=== PATIENT | female | born 2000 | race Caucasian/White ===

== ENCOUNTER 2022-12-28 16:22 | Outpatient (RCR) | payer OTHER, SELFPAY ==
[2022-12-26 18:02] LABS: Beta HCG Quantitative 128.17 mIU/ML
[2022-12-28 18:15] LABS: Beta HCG Quantitative 53.32 mIU/ML
[2022-12-29 05:29] LABS: Progesterone 1.9 ng/mL (***)
[2023-01-03 06:34] LABS: Progesterone 2.5 ng/mL (***)
== END 2023-03-26 23:59 | disposition home or self-care (01) ==
LOC: ANHLAB 16:22
PROVIDERS: PCP Pediatrics; Visit Provider Obstetrics & Gynecology
DX: O26.859 Spotting complicating pregnancy, unspecified trimester (principal); Z3A.00 Weeks of gestation of pregnancy not specified
CPT/HCPCS: 36415; 84144; 84702; 86850; 86900; 86901

== ENCOUNTER 2023-01-15 16:25 | Outpatient (CLI) | payer OTHER, SELFPAY ==
[2023-01-15 17:37] LABS: Beta HCG Quantitative < 2.39 mIU/ML
== END 2023-01-15 16:26 | disposition home or self-care (01) ==
LOC: ANHLAB 16:26
PROVIDERS: PCP Pediatrics; Visit Provider Obstetrics & Gynecology
DX: O03.9 Complete or unspecified spontaneous abortion without complication (principal); Z3A.00 Weeks of gestation of pregnancy not specified
CPT/HCPCS: 36415; 84702

== ENCOUNTER 2023-04-09 08:27 | Outpatient (CLI) | payer OTHER, SELFPAY ==
[2023-04-09 09:12] LABS: Beta HCG Quantitative 499.72 mIU/ML
[2023-04-11 06:15] LABS: Progesterone 24.1 ng/mL (***)
== END 2023-04-09 08:28 | disposition home or self-care (01) ==
LOC: ANHLAB 08:29
PROVIDERS: PCP Pediatrics; Visit Provider Obstetrics & Gynecology
DX: O09.299 Supervision of pregnancy with other poor reproductive or obstetric history, unspecified trimester (principal); Z3A.00 Weeks of gestation of pregnancy not specified
CPT/HCPCS: 36415; 84144; 84702

== ENCOUNTER 2023-04-11 07:41 | Outpatient (CLI) | payer OTHER, SELFPAY | END 2023-04-11 07:42 | disposition home or self-care (01) | LOC: ANHLAB 07:43 | PROVIDERS: PCP Hospitalist; Visit Provider Obstetrics & Gynecology | DX: O09.299 Supervision of pregnancy with other poor reproductive or obstetric history, unspecified trimester (principal); Z3A.00 Weeks of gestation of pregnancy not specified | CPT/HCPCS: 36415; 84702 ==

== ENCOUNTER → 2023-04-27 15:45 | Outpatient (CLI) | payer OTHER, SELFPAY ==
--- NOTE | ~2023-04-27 | US_ITS ---
EXAMINATION: US OB <=14 wk fetus w TV DATE: 04/27/2023 16:09 INDICATION: Jessica and inconclusive viability during first trimester. TECHNIQUE: Real-time pelvic ultrasound utilizing both a transvaginal and transabdominal probe was pe rformed. The interpreting radiologist was not present for the study. COMPARISON: None. FINDINGS: The uterus measures 9.8 x 4.9 x 5.9 cm. There is an intrauterine gestational sac. A yolk sac and fet al pole are identified. The crown rump length measures 9 mm, which correlates with an estimated gesta tional age of 6 weeks and 6 days. heart motion is identified measuring 131 beats per minute (bp m) by M-mode Doppler. The right ovary is not visualized. The left ovary measures 3.5 x 3.5 x 3.6 cm. There are couple anech oic cysts/follicles in the left ovary. Vascular flow identified in the left ovary on color Doppler. T here is no free fluid in the pelvis. IMPRESSION: 1. Single living fetus with heart rate of 131 bpm. 2. Gestational age by ultrasound of 6 weeks 6 day(s) +/- 4 day(s) with ultrasound estimated date of delivery (BETSY) of 12/15/2023. Reviewed, dictated and finalized at location A. [facility] IMPRESSION: 1. Single living fetus with heart rate of 131 bpm. 2. Gestational age by ultrasound of 6 weeks 6 day(s) +/- 4 day(s) with ultraso und estimated date of delivery (BETSY) of 12/15/2023.
== END ==
PROVIDERS: PCP Obstetrics & Gynecology; Visit Provider Obstetrics & Gynecology
DX: O36.80X0 Pregnancy with inconclusive fetal viability, not applicable or unspecified (principal); Z3A.01 Less than 8 weeks gestation of pregnancy
CPT/HCPCS: 76801; 76817

== ENCOUNTER 2023-05-09 17:37 | Outpatient (CLI) | payer OTHER, SELFPAY | END 2023-05-09 17:38 | disposition home or self-care (01) | LOC: ANHLAB 17:39 | PROVIDERS: PCP Hospitalist; Visit Provider Obstetrics & Gynecology | DX: B08.3 Erythema infectiosum [fifth disease] (principal) | CPT/HCPCS: 36415; 86747 ==

== ENCOUNTER 2023-05-24 09:19 | Outpatient (CLI) | payer OTHER, SELFPAY ==
--- NOTE | 2023-06-14 17:51 | WPDHOMESLEEP ---
Sleep Study - Home Unattended Date of Study: 05/24/23 Ordering Provider: DEB Suarez Interpreting Provider: Summer Ott, DO Home Sleep Study Type: Watch PAT Height: 1.65 m Weight: 79.379 kg Body Mass Index: 29.1 Neck Circumference (inches): 13 [place]: 0 Reason for Sleep Study Snoring Sleep History The patient is a 23-year-old female that had a sleep study ordered by the pulmonary group for evaluation of sleep apnea. The patient denies awakening from sleep short of breath. She denies awakening at night with heartburn, belching or cough. She frequently snores and it is frequently loud enough that others complain. She occasionally has trouble sleeping when she has a cold. She denies waking up gasping for air throughout the night. She denies having breathing problems at night observed by herself or others. She rarely sweats excessively at night. She denies having heart palpitations or irregular heartbeats during the night. She occasionally falls asleep during the day but never while driving. She denies sleep paralysis and cataplexy. She rarely has trouble at school or work due to sleepiness. She occasionally experiences vivid dreamlike scenes upon awakening or falling asleep. He denies feeling afraid of going to sleep. She occasionally has nightmares. She occasionally remembers her dreams. She rarely has thoughts racing through her mind. She denies feeling sad or depressed. She occasionally has anxiety. She denies having muscular tension. She denies noticing parts of her body jerk. She denies kicking during the night. She denies having crawling and aching feelings in her legs and denies leg pain during the night. She denies grinding her teeth during sleep and denies awakening with jaw pain in the morning. She denies being bothered by pain during the day and denies being awakened by pain during the night. She denies waking up feeling stiff. He denies waking up with sore or achy muscles. She denies waking up with pain in the neck, spine and other joints. She goes to bed at 9:00 p.m. on both weekdays and weekends. It takes her 10 minutes to fall asleep. She wakes up once at most throughout the night to use the restroom or due to a dream. It can take her up to 30 minutes to fall back asleep. She wakes up at 7:00 a.m. on weekdays and 8:00 a.m. on the weekends. She typically gets 10 hours of sleep per night. She will stay in bed anywhere from 20-60 minutes after waking up in the morning. She currently lives with her . She denies consuming any caffeinated beverages within 2 hours of bedtime. She denies engaging in physical exercise before bedtime. He will watch television before falling asleep. She will take naps during the afternoon or the evening but they are not refreshing. She consumes 1 caffeinated beverage at most throughout the day. She used to vape but stopped 4 years ago. She denies alcohol and recreational drug use. [facility] Past Medical History Medical History Anxiety Depression Surgical History Surgical History S/P cystoscopy [place] teeth removed Social History Social History Smoking status: Former smoker Tobacco type: e-cigarettes/vaping Alcohol intake: current Substance use: former Substance use type: marijuana Medications Home Medications Medication Instructions Recorded Confirmed Type progesterone micronized 100 mg 100 mg PO BID #60 caps 04/10/23 05/22/23 Rx capsule docosahexaenoic acid 200 mg mg PO 05/04/23 05/22/23 History capsule ( DHA) doxylamine succinate 25 mg tablet 25 mg PO QHS PRN 05/04/23 05/22/23 History (Unisom (doxylamine)) pyridoxine (vitamin B6) 10 mg 10 mg PO TID 05/22/23 05/22/23 History tablet ondansetron HCl 4 mg tablet 4 mg PO Q6H PRN n
[2023-06-14 18:02] VITALS: BMI 29.1
== END 2023-05-29 07:30 | disposition home or self-care (01) ==
LOC: ANHCSM 09:21
PROVIDERS: PCP Hospitalist; Visit Provider Physician Assistant
DX: G47.10 Hypersomnia, unspecified (principal); R06.83 Snoring
CPT/HCPCS: 95800

== ENCOUNTER 2023-06-06 16:38 | Outpatient (CLI) | payer OTHER, SELFPAY | END 2023-06-06 16:39 | disposition home or self-care (01) | LOC: ANHLAB 16:39 | PROVIDERS: PCP Hospitalist; Visit Provider Obstetrics & Gynecology | DX: B08.3 Erythema infectiosum [fifth disease] (principal) | CPT/HCPCS: 36415; 86747 ==

== ENCOUNTER 2023-06-13 16:52 | Outpatient (CLI) | payer OTHER, SELFPAY ==
[2023-06-13 17:33] LABS: Hematocrit 40.9 % (37.0-47.0); Hemoglobin 14.1 g/dL (12.0-15.0); Mean Corpuscular HGB Conc 34.5 g/dl (32-36); Mean Corpuscular Hemoglobin 32.2 pg (26-34); Mean Corpuscular Volume 93.4 fl (80-100); Mean Platelet Volume 12.3 fl (7.4-10.4); Platelet Count Result 217 k/mm3 (150-375); Red Blood Count 4.38 M/mm3 (4.2-5.4); Red Cell Distribution Width 12.8 % (11.5-14.5)
[2023-06-13 17:39] LABS: Appearance Urine Clear (Clear); Bacteria Urine 3+ /hpf; Bilirubin Urine Negative (Negative); Blood Urine Negative (Negative); Color Urine Yellow (Yellow); Glucose Urine UA Negative (Negative); Ketones Urine 1+ mg/dL (Negative); Leukocyte Esterase Ur 1+ LEU/UL (Negative); Nitrate Urine Negative (Negative); Non Pathogenic Casts 0-2; Protein Urine Negative (Negative); RBC Urine 0-2 /hpf (0-2); Specific Grav Ur 1.026 (1.001-1.035); Squamous Epithelial Cell Urine Few /hpf (Few); WBC Urine 21-50 /hpf (0-3); pH Urine 5.5 (5.0-9.0)
[2023-06-13 17:58] LABS: Add Urine Microscopic? YES
[2023-06-13 18:37] LABS: Hepatitis B Surface Antigen Negative (Negative); Rubella IgG Antibody 19.4 IU/ML; Thyroid Stimulating Hormone 0.808 uIU/mL (0.465-4.680)
[2023-06-13 18:47] LABS: HIV 1/2 Ab P24 Ag Result Negative (Negative)
[2023-06-13 18:51] LABS: Hepatitis C Virus Antibody Negative (Negative)
[2023-06-14 12:45] LABS: Rapid Plasma Reagin Non-Reactive (NonReactive)
[2023-06-17 15:10] LABS: Varicella IgG Antibody <135.00 Index (>=165.00)
[2023-06-19 15:53] LABS: Hematocrit 41.8 % (35.0-45.0); MCH 32.4 pg (27.0-33.0); MCV 96.8 fL (80.0-100.0); RDW 12.8 % (11.0-15.0); Red Blood Cell Count 4.32 Mill/uL (3.80-5.10)
== END 2023-06-13 16:53 | disposition home or self-care (01) ==
LOC: ANHLAB 16:53
PROVIDERS: PCP Hospitalist; Visit Provider Obstetrics & Gynecology
DX: Z34.90 Encounter for supervision of normal pregnancy, unspecified, unspecified trimester (principal); Z3A.00 Weeks of gestation of pregnancy not specified
CPT/HCPCS: 36415; 83021; 84443; 85027; 86592; 86703; 86762; 86787; 86803; 86850; 86900; 86901; 87086; 87088; 87340; G0432

== ENCOUNTER 2023-08-27 10:53 | Outpatient (CLI) | payer OTHER, SELFPAY ==
[2023-08-27 12:16] LABS: Hematocrit 34.7 % (37.0-47.0); Hemoglobin 11.8 g/dL (12.0-15.0); Mean Corpuscular Hemoglobin 32.8 pg (26-34); Mean Corpuscular Volume 96.4 fl (80-100); Mean Platelet Volume 12.5 fl (7.4-10.4); Platelet Count Result 182 k/mm3 (150-375); Red Cell Distribution Width 13.3 % (11.5-14.5); White Blood Count 13.9 K/mm3 (4.5-10.0)
[2023-08-27 12:28] LABS: Glucose 1 Hour PP 50gm Dose 140 mg/dL
== END 2023-08-27 10:54 | disposition home or self-care (01) ==
LOC: ANHLAB 10:54
PROVIDERS: PCP Hospitalist; Visit Provider Nurse Practitioner Family
DX: Z34.90 Encounter for supervision of normal pregnancy, unspecified, unspecified trimester (principal)
CPT/HCPCS: 36415; 82947; 85027

== ENCOUNTER 2023-08-31 07:01 | Outpatient (CLI) | payer OTHER, SELFPAY ==
[2023-08-31 07:49] LABS: Glucose Fasting Gestational 86 mg/dL (>/=95)
[2023-08-31 09:41] LABS: Glucose 1 Hour Gest 154 mg/dL (>/=180)
[2023-08-31 11:32] LABS: Glucose 2 Hour Gest 158 mg/dL (>/= 155)
[2023-08-31 11:35] LABS: Glucose 3 Hour Gest 112 mg/dL (>/=140)
== END 2023-08-31 07:02 | disposition home or self-care (01) ==
LOC: ANHLAB 07:02
PROVIDERS: PCP Hospitalist; Visit Provider Nurse Practitioner Family
DX: O99.810 Abnormal glucose complicating pregnancy (principal); Z3A.00 Weeks of gestation of pregnancy not specified
CPT/HCPCS: 36415; 82951; 82952

== ENCOUNTER 2023-10-23 17:21 | Outpatient (CLI) | payer OTHER, SELFPAY ==
[2023-10-23 17:40] LABS: Hematocrit 36.3 % (37.0-47.0); Hemoglobin 12.5 g/dL (12.0-15.0); Mean Corpuscular HGB Conc 34.4 g/dl (32-36); Mean Corpuscular Hemoglobin 33.2 pg (26-34); Mean Corpuscular Volume 96.3 fl (80-100); Mean Platelet Volume 13.2 fl (7.4-10.4); Platelet Count Result 170 k/mm3 (150-375); Red Blood Count 3.77 M/mm3 (4.2-5.4); Red Cell Distribution Width 13.1 % (11.5-14.5); White Blood Count 13.4 K/mm3 (4.5-10.0)
[2023-10-23 18:27] LABS: HIV 1/2 Ab P24 Ag Result Negative (Negative)
[2023-10-24 06:16] LABS: Rapid Plasma Reagin Non-Reactive (NonReactive)
== END 2023-10-23 17:22 | disposition home or self-care (01) ==
LOC: ANHLAB 17:22
PROVIDERS: PCP Hospitalist; Visit Provider Nurse Practitioner Family
DX: Z34.90 Encounter for supervision of normal pregnancy, unspecified, unspecified trimester (principal); Z3A.00 Weeks of gestation of pregnancy not specified
CPT/HCPCS: 36415; 85027; 85055; 86592; 86703; G0432

== ENCOUNTER 2023-11-28 07:01 | Inpatient (IN) | payer OTHER, SELFPAY ==
[2023-11-28] VITALS (80 sets, daily range): BP systolic 81–162; BP diastolic 44–98; PULSE 60–107; TEMP 36.1–36.4; O2SAT 97–100; BMI 30.9
--- NOTE | ~2023-11-28 | US_ITS ---
EXAMINATION: US OB BPP wo non-stress DATE: 11/28/2023 20:20 INDICATION: Abnormal biophysical profile. Third trimester. TECHNIQUE: Real-time pelvic ultrasound was performed. COMPARISON: Ultrasound 11/28/2023 FINDINGS: There is a single living fetus in breech presentation. The placenta is fundal and on the left. heart rate is 133 beats per minute (bpm). Biophysical profile performed by the technologist: breathing (30 sec sustained breathing in 30 minutes): 2 out of 2 movement (3 gross body movements in 30 minutes): 0 out of 2 tone (one episode of spenimw-ygkcsbyry-azmuuoc limb movement): 0 out of 2 Amniotic fluid pocket (2 cm): 2 out of 2 Total score: 4 out of 8 IMPRESSION: 1. Single living fetus in breech presentation. 2. Biophysical profile 4 out of 8. Reviewed, dictated and finalized at location A.
--- NOTE | ~2023-11-28 | US_ITS ---
EXAMINATION: US OB BPP wo non-stress DATE: 11/28/2023 13:29 INDICATION: Nonreactive tracing. Evaluate well-being. TECHNIQUE: Real-time pelvic ultrasound was performed. The interpreting radiologist was not present fo r the study. COMPARISON: None. FINDINGS: There is a single living fetus in breech presentation. The placenta is maternal left. cardiac activity and movement are demonstrated. heart rate is 126 beats per minute (bpm). Biophysical profile performed by the technologist: breathing (30 sec sustained breathing in 30 minutes): 2 out of 2 movement (3 gross body movements in 30 minutes): 0 out of 2 tone (one episode of bhskgrk-tzyfhsbkj-faltguq limb movement): 2 out of 2 Amniotic fluid pocket (2 cm): 2 out of 2 Total score: 6 out of 8 IMPRESSION: 1. Single living intrauterine in breech presentation with heart rate of 126 bpm. 2. Normal placenta. 3. Biophysical profile 6 out of 8. Reviewed, dictated and finalized at location B.
[2023-11-28 07:35] LABS: Basophils Absolute Auto 0.1 K/mm3 (0.0-0.1); Basophils Percent Auto 0.5 % (0.2-1.2); Eosinophils Absolute Auto 0.6 K/mm3 (0-0.3); Eosinophils Percent Auto 4.7 % (0-4.4); Hematocrit 38.9 % (37.0-47.0); Hemoglobin 13.1 g/dL (12.0-15.0); Immature Granulocyte Absolute 0.07 K/mm3 (0.00-0.031); Immature Granulocyte Percent A 0.5 % (0-0.5); Immature Platelet Fraction Pct 25.6 % (0.9-11.2); Lymphocytes Absolute Auto 3.01 K/mm3 (0.9-3.2); Lymphocytes Percent Auto 22.2 % (18.3-44.2); Mean Corpuscular HGB Conc 33.7 g/dl (32-36); Mean Corpuscular Hemoglobin 31.3 pg (26-34); Mean Corpuscular Volume 93.1 fl (80-100); Mean Platelet Volume 14.6 fl (7.4-10.4); Monocytes Absolute Auto 0.8 K/mm3 (0.1-0.6); Monocytes Percent Auto 6.1 % (2.6-8.5); Neutrophils Absolute Auto 8.9 K/mm3 (1.3-6.7); Platelet Count Result 170 k/mm3 (150-375); Red Blood Count 4.18 M/mm3 (4.2-5.4); Red Cell Distribution Width 13.1 % (11.5-14.5); White Blood Count 13.5 K/mm3 (4.5-10.0)
[2023-11-28] MEDS: LACTATED RINGERS 1,000 ML 999 ML IV CONT (07:39)
[2023-11-28] MEDS: LACTATED RINGERS 1,000 ML 125 ML IV CONT ×2 (08:40→10:40)
--- NOTE | 2023-11-28 09:46 | WPDANESEPP ---
Anes - Eval Pre Procedure Procedure: Epidural for Version Date/Time: 11/28/23 09:46 Surgeon: Carla Preop Diagnosis: 37 wk IUP, breech presentation, scheduled external version Pre Op Diagnosis: external version Patient Data Age: 23 Gender: F Height: Weight: Last Vital Signs Pulse 79 11/28/23 09:45 BP 119/60 11/28/23 09:45 Pulse Ox 99 11/28/23 09:43 Allergies Allergy/AdvReac Type Severity Reaction Status Date / Time ciprofloxacin Allergy Unknown THROAT Verified 11/27/23 08:43 SWELLING dexamethasone Allergy Unknown THROAT Verified 11/27/23 08:43 SWELLING Home Medications Medication Instructions Recorded Confirmed Type docosahexaenoic acid 200 mg 200 mg PO DAILY 05/04/23 11/22/23 History capsule ( DHA) Laboratory Tests 11/28/23 07:27 WBC 13.5 H K/mm3 (4.5-10.0) RBC 4.18 L M/mm3 (4.2-5.4) Hgb 13.1 g/dL (12.0-15.0) Hct 38.9 % (37.0-47.0) MCV 93.1 fl (80-100) MCH 31.3 pg (26-34) MCHC 33.7 g/dl (32-36) RDW 13.1 % (11.5-14.5) Plt Count 170 k/mm3 (150-375) MPV 14.6 H fl (7.4-10.4) Immature Gran % (Auto) 0.5 % (0-0.5) Neut % (Auto) 66.0 % (45.5-73.1) Lymph % (Auto) 22.2 % (18.3-44.2) [place] % (Auto) 6.1 % (2.6-8.5) Eos % (Auto) 4.7 H % (0-4.4) Baso % (Auto) 0.5 % (0.2-1.2) Lymph # (Auto) 3.01 K/mm3 (0.9-3.2) [place] # (Auto) 0.8 H K/mm3 (0.1-0.6) Eos # (Auto) 0.6 H K/mm3 (0-0.3) Baso # (Auto) 0.1 K/mm3 (0.0-0.1) Abs Immat Gran (auto) 0.07 H K/mm3 (0.00-0.031) Absolute Neuts (auto) 8.9 H K/mm3 (1.3-6.7) Absolute Nucleated RBC 0.000 K/mm3 (0.0-0.012) Nucleated RBC % 0.0 % (0.0-0.2) % Immature Plt Fraction 25.6 H % (0.9-11.2) : gestational age (, BETSY 12/15/23) Patient hx anesthesia problems: none Family hx anesthesia problems: none Results Review: All pre-operative results and documents have been reviewed as part of the pre-operative evaluation. [facility] Past Medical History Medical History Anxiety Depression Surgical History Surgical History S/P cystoscopy [place] teeth removed Family History Family History Other Unknown family medical history Social History Social History Smoking status: Former smoker Tobacco type: e-cigarettes/vaping Alcohol intake: current Substance use: never Substance use type: marijuana Spiritual care concerns: No Exam Day of Procedure 11/28/23 09:46 Patient weight: normal Heart: regular rate and rhythm Lungs: normal air movement Airway: Mallampati scale class II Neurological: alert and oriented
[2023-11-28] MEDS: TERBUTALINE SULFATE 1 MG/ML VIAL 0.25 MG SUB-Q (09:51)
[2023-11-28] MEDS: PHENYLEPHRINE 1,000 MCG/10 ML SYRINGE 100 MCG IV PUSH ×2 (10:08→10:35)
[2023-11-28 11:11] LABS: Alanine Aminotransferase 46 U/L (6-35); Albumin Level 3.5 g/dL (3.5-5.1); Alkaline Phosphatase 265 U/L (38-126); Anion Gap 11 mmol/L (4-12); Aspartate Amino Transferase 49 U/L (14-36); Bilirubin,Total 0.4 mg/dL (0.2-1.3); Blood Urea Nitrogen 12 mg/dL (7-17); Carbon Dioxide 21 mmol/L (22-30); Chloride 103 mmol/L (98-107); Estimated Glomerular Filt Rate > 60; Glucose 57 mg/dL (65-110); Potassium 3.8 mmol/L (3.4-5.0); Sodium 135 mmol/L (137-145); Uric Acid 5.6 mg/dL (2.5-7.5)
--- NOTE | 2023-11-28 11:16 | PC.NURSE ---
Dr Aguirre informed of elevated AST and ALT, orders for P/C ratio when patient able to void and start urine. Informed of low glucose, and that patient had a juice.
[2023-11-28 13:36] LABS: Add Urine Microscopic? YES; Appearance Urine Clear (Clear); Bacteria Urine None Seen /hpf; Bilirubin Urine Negative (Negative); Blood Urine Negative (Negative); Color Urine Yellow (Yellow); Glucose Urine UA Negative (Negative); Ketones Urine Negative (Negative); Leukocyte Esterase Ur Trace LEU/UL (Negative); Nitrate Urine Negative (Negative); Non Pathogenic Casts 0-2; Protein Urine Negative (Negative); RBC Urine 0-2 /hpf (0-2); Specific Grav Ur 1.009 (1.001-1.035); Squamous Epithelial Cell Urine None Seen /hpf (Few); Urobilinogen Urine 0.2 mg/dL (<2.0); WBC Urine 0-5 /hpf (0-3)
--- NOTE | 2023-11-28 13:36 | PC.NURSE ---
Dr Aguirre informed of BPP 08/31 and minimal variability and preliminary US report. OK for patient to Eat and cont to monitor baby.
[2023-11-28 14:57] LABS: Creatinine Urine 50.7 mg/dL; Total Protein Urine Random 11 mg/dL; Ur Ttl Prot Creatinine Ratio 0.22 mg/mg (0-0.20)
--- NOTE | 2023-11-28 17:48 | PC.NURSE ---
Dr Aguirre called, no answer, message left to call jammie.
--- NOTE | 2023-11-28 17:57 | LDADM ---
This patient, Ashley Zimmerman, was admitted to OB Post 116 on at 07:01. Plans for labor, pain management and were discussed with patient. Patient/family oriented to hospital policies and general routines including ID bracelet, bed and alarms, visiting hours, pain management, procedures, bathroom and other care routines, personal items, smoking policy, room service/diet and guest tray routines, infant security routines, and visiting hours. Patient/Family are encouraged to report perceived risks to care and to ask questions if they do not understand what they are told or what they should do. See OBIX for further documentation.
--- NOTE | 2023-11-28 18:06 | PC.NURSE ---
Dr Aguirre called again, no answer, message left.
[2023-11-28 18:55] LABS: Rapid Plasma Reagin Non-Reactive (NonReactive)
--- NOTE | 2023-11-28 21:05 | W.PM.PROC2 ---
Procedure Note - Detailed Date of Procedure 11/28/23 Pre-op Diagnosis Persistent breech presentation Post-op Diagnosis Same Procedure Performed External cephalic version - unsuccessful Surgeon Quintin Aguirre MD Anesthesia Epidural Indications Persistent breech presentation Findings Fetus confirmed breech presentation prior to version Description of Procedure After informed consent obtained. ?A bedside ultrasound was performed which confirmed the single intrauterine and in breech presentation. There was noted to be adequate fluid and a reactive NST. Epidural was placed. She was given .25mg terbutaline. The pelvis was located in the maternal RLQ, spine along the materal right side, and head in the maternal LUQ. Using manual pressure, the fetus was manipulated with gentle pressure from the palms against the buttock and posterior occupit to stimulate a forward roll. This was done twice. heart was visualized with ultrasound after each attempt. The head would get to transverse and return back to LUQ. After second attempt their was noted to be brief, less than minute of bradycardia, this did resolve with left tilt. A third attempt was made with backwards roll and head reached transverse position but returned to fundus. heart rate 120-130s. Decision was made to not perform any further attempts. Post procedure monitoring was initiated. Estimated Blood Loss 0 Drains No Packing No Complications No immediate complications Condition Stable Disposition Observation (on floor) [facility] Billing Surgery - Charge Forward: Surgery Billing
--- NOTE | 2023-11-28 21:20 | PM.IMHP ---
H&P: HPI History of Present Illness Date/Time: 11/28/23 21:20 Chief Complaint: Gestational hypertension Narrative: Patient is a 23 y/o G1 at 37 4 weeks admitted initially for external cephalic version. Prior to version she did have isolated elevated blood pressure. She denied headache, scotomata or RUQ pain. PIH labs performed which was significant for elevated liver enzymes. She had prolonged monitoring after ECV. Tracing was nonreactive. BPP performed and was 6/10. She did not eat prior to the BPP. She continued to have intermittent elevated blood pressures throughout the day. She was informed of diagnosis of gestational hypertension and recommendation for delivery. The tracing did improve. Reactive. Repeat BPP 6/10. She will stay for monitoring with plan for primary section for breech in the morning. She was informed of risk benefits of section and agreed with section. Review of Systems Review of Systems: All systems reviewed & are unremarkable except as noted in HPI and below Constitutional: Constitutional: Reports no additional constitutional complaints and Denies headache(s) Eyes: Eyes: Denies spots in vision ENT: Reports system reviewed and no additional complaints, except as documented and Denies headache(s) Cardiovascular: Cardiovascular: Denies chest pain and Denies dyspnea Respiratory: Respiratory: Denies dyspnea Gastrointestinal: Gastrointestinal: Reports no additional gastrointestinal complaints Genitourinary: Genitourinary: Reports amenorrhea Musculoskeletal: Musculoskeletal: Reports no additional musculoskeletal complaints Integumentary/Breasts: Skin/Breast: Denies breast mass and Denies rash Neurologic: Denies headache(s) Psychiatric: Psychiatric: Reports no additional psychiatric complaints [facility] Past Medical History Medical History Anxiety Depression Surgical History Surgical History S/P cystoscopy [place] teeth removed Family History Family History Other Unknown family medical history Social History Social History Smoking status: Never smoker Tobacco type: e-cigarettes/vaping Alcohol intake: current Substance use: never Substance use type: marijuana Do You Feel Safe in your Home?: Yes Lack of Transportation: No Lack of Food: Never True Current Housing: I Have Housing Concerned About Future Housing: No Difficulty Paying Gas/Electric Bills: No Difficulty Paying for Meds: No Currently Unemployed: No Education: Bachelor's Degree Difficulty w/ Childcare or Family Care: No Spiritual care concerns: No Meds Home Medications and Allergies Home Medications Medication Instructions Recorded Confirmed Type docosahexaenoic acid 200 mg 200 mg PO DAILY 05/04/23 11/22/23 History capsule ( DHA) Allergies Allergy/AdvReac Type Severity Reaction Status Date / Time ciprofloxacin Allergy Unknown THROAT Verified 11/27/23 08:43 SWELLING dexamethasone Allergy Unknown THROAT Verified 11/27/23 08:43 SWELLING Vital Signs Vital Signs - 24 hr 11/28/23 08:12 11/28/23 08:15 11/28/23 08:30 Pulse Rate 87 83 87 Blood Pressure 136/79 130/87 132/94 H Pulse Oximetry Oxygen Delivery 11/28/23 08:36 11/28/23 08:45 11/28/23 09:15 Pulse Rate 90 84 81 Blood Pressure 129/91 H 134/93 H 122/92 H Pulse Oximetry Oxygen Delivery 11/28/23 09:22 11/28/23 09:23 11/28/23 09:25 Pulse Rate 107 H 95 90 Blood Pressure 157/92 H 162/98 H 136/82 Pulse Oximetry 99 Oxygen Delivery 11/28/23 09:27 11/28/23 09:28 11/28/23 09:30 Pulse Rate 101 H 95 Blood Pressure 137/97 H 137/63 Pulse Oximetry 97 Oxygen Delivery 11/28/23 09:32 11/28/23 09:33 11/28/23 09:35 Pulse
[2023-11-29] VITALS (60 sets, daily range): BP systolic 102–154; BP diastolic 49–98; PULSE 49–97; RESP 16–20; TEMP 36.3–37.1; O2SAT 96–100
[2023-11-29 04:53] LABS: Hematocrit 33.7 % (37.0-47.0); Hemoglobin 11.4 g/dL (12.0-15.0); Immature Platelet Fraction Pct 23.6 % (0.9-11.2); Mean Corpuscular HGB Conc 33.8 g/dl (32-36); Mean Corpuscular Volume 94.7 fl (80-100); Mean Platelet Volume 14.6 fl (7.4-10.4); Platelet Count Result 129 k/mm3 (150-375); Red Blood Count 3.56 M/mm3 (4.2-5.4); Red Cell Distribution Width 13.1 % (11.5-14.5); White Blood Count 10.7 K/mm3 (4.5-10.0)
[2023-11-29 05:05] LABS: Alanine Aminotransferase 43 U/L (6-35); Albumin Level 2.8 g/dL (3.5-5.1); Alkaline Phosphatase 224 U/L (38-126); Anion Gap 8 mmol/L (4-12); Aspartate Amino Transferase 41 U/L (14-36); Bilirubin,Total 0.3 mg/dL (0.2-1.3); Blood Urea Nitrogen 10 mg/dL (7-17); Calcium 8.5 mg/dL (8.4-10.2); Carbon Dioxide 22 mmol/L (22-30); Chloride 105 mmol/L (98-107); Estimated CRCL calculation 115 ml/min; Estimated Glomerular Filt Rate > 60; Glucose 102 mg/dL (65-110); Potassium 3.8 mmol/L (3.4-5.0); Sodium 135 mmol/L (137-145); Uric Acid 5.4 mg/dL (2.5-7.5)
[2023-11-29] MEDS: LACTATED RINGERS 1,000 ML 125 ML IV CONT (05:37)
[2023-11-29] MEDS: ACETAMINOPHEN 500 MG TABLET 1000 MG PO (05:38)
[2023-11-29 05:44] LABS: HIV 1/2 Ab P24 Ag Result Negative (Negative)
[2023-11-29] MEDS: FAMOTIDINE 20 MG/2 ML VIAL IV PUSH (07:27)
[2023-11-29] MEDS: ONDANSETRON INJ 4 MG/2 ML VIAL IV PUSH (07:27)
--- NOTE | 2023-11-29 07:27 | P.PNAN_ITS ---
Anes - Initial Pre Proc Eval Procedure: Operation Date: 11/29/23 07:30 Proposed Procedures p Section - Quintin Aguirre MD Date/Time: 11/29/23 07:27 Surgeon: Quintin Aguirre MD Pre Op Diagnosis: C/S Patient Data Age: 23 Gender: F Height: 1.65 m Weight: 84.5 kg Last Vital Signs Temp 97.8 F 11/29/23 05:38 Pulse 77 11/29/23 07:00 BP 150/97 H 11/29/23 07:00 Pulse Ox 100 11/28/23 12:13 O2 Del Method Room Air 11/28/23 17:56 Allergies Allergy/AdvReac Type Severity Reaction Status Date / Time ciprofloxacin Allergy Unknown THROAT Verified 11/27/23 08:43 SWELLING dexamethasone Allergy Unknown THROAT Verified 11/27/23 08:43 SWELLING Home Medications Medication Instructions Recorded Confirmed Type docosahexaenoic acid 200 mg 200 mg PO DAILY 05/04/23 11/22/23 History capsule ( DHA) Laboratory Tests 11/28/23 11/28/23 11/28/23 07:27 10:49 13:22 WBC 13.5 H K/mm3 (4.5-10.0) RBC 4.18 L M/mm3 (4.2-5.4) Hgb 13.1 g/dL (12.0-15.0) Hct 38.9 % (37.0-47.0) MCV 93.1 fl (80-100) MCH 31.3 pg (26-34) MCHC 33.7 g/dl (32-36) RDW 13.1 % (11.5-14.5) Plt Count 170 k/mm3 (150-375) MPV 14.6 H fl (7.4-10.4) Immature Gran % (Auto) 0.5 % (0-0.5) Neut % (Auto) 66.0 % (45.5-73.1) Lymph % (Auto) 22.2 % (18.3-44.2) [place] % (Auto) 6.1 % (2.6-8.5) Eos % (Auto) 4.7 H % (0-4.4) Baso % (Auto) 0.5 % (0.2-1.2) Lymph # (Auto) 3.01 K/mm3 (0.9-3.2) [place] # (Auto) 0.8 H K/mm3 (0.1-0.6) Eos # (Auto) 0.6 H K/mm3 (0-0.3) Baso # (Auto) 0.1 K/mm3 (0.0-0.1) Abs Immat Gran (auto) 0.07 H K/mm3 (0.00-0.031) Absolute Neuts (auto) 8.9 H K/mm3 (1.3-6.7) Absolute Nucleated RBC 0.000 K/mm3 (0.0-0.012) Nucleated RBC % 0.0 % (0.0-0.2) % Immature Plt Fraction 25.6 H % (0.9-11.2) Sodium 135 L mmol/L (137-145) Potassium 3.8 mmol/L (3.4-5.0) Chloride 103 mmol/L (98-107) Carbon Dioxide 21 L mmol/L (22-30) Anion Gap 11 mmol/L (4-12) BUN 12 mg/dL (7-17) Creatinine 0.70 mg/dL (0.7-1.0) Estim Creat Clear Calc Not Reportable Estimated GFR > 60 (59 - ) Glucose 57 L* mg/dL (65-110) Uric Acid 5.6 mg/dL (2.5-7.5) Calcium 10.0 mg/dL (8.4-10.2) Total Bilirubin 0.4 mg/dL (0.2-1.3) AST 49 H U/L (14-36) ALT 46 H
--- NOTE | 2023-11-29 07:29 | WPDANESEPPF ---
Anes - Initial Pre Proc Eval Procedure: Operation Date: 11/29/23 07:30 Proposed Procedures p Section - Quintin Aguirre MD Date/Time: 11/29/23 07:29 Surgeon: Quintin Aguirre MD Pre Op Diagnosis: C/S Patient Data Age: 23 Gender: F Height: 1.65 m Weight: 84.5 kg Last Vital Signs Temp 97.8 F 11/29/23 05:38 Pulse 77 11/29/23 07:00 BP 150/97 H 11/29/23 07:00 Pulse Ox 100 11/28/23 12:13 O2 Del Method Room Air 11/28/23 17:56 Allergies Allergy/AdvReac Type Severity Reaction Status Date / Time ciprofloxacin Allergy Unknown THROAT Verified 11/27/23 08:43 SWELLING dexamethasone Allergy Unknown THROAT Verified 11/27/23 08:43 SWELLING Home Medications Medication Instructions Recorded Confirmed Type docosahexaenoic acid 200 mg 200 mg PO DAILY 05/04/23 11/22/23 History capsule ( DHA) Laboratory Tests 11/28/23 11/28/23 11/28/23 07:27 10:49 13:22 WBC 13.5 H K/mm3 (4.5-10.0) RBC 4.18 L M/mm3 (4.2-5.4) Hgb 13.1 g/dL (12.0-15.0) Hct 38.9 % (37.0-47.0) MCV 93.1 fl (80-100) MCH 31.3 pg (26-34) MCHC 33.7 g/dl (32-36) RDW 13.1 % (11.5-14.5) Plt Count 170 k/mm3 (150-375) MPV 14.6 H fl (7.4-10.4) Immature Gran % (Auto) 0.5 % (0-0.5) Neut % (Auto) 66.0 % (45.5-73.1) Lymph % (Auto) 22.2 % (18.3-44.2) [place] % (Auto) 6.1 % (2.6-8.5) Eos % (Auto) 4.7 H % (0-4.4) Baso % (Auto) 0.5 % (0.2-1.2) Lymph # (Auto) 3.01 K/mm3 (0.9-3.2) [place] # (Auto) 0.8 H K/mm3 (0.1-0.6) Eos # (Auto) 0.6 H K/mm3 (0-0.3) Baso # (Auto) 0.1 K/mm3 (0.0-0.1) Abs Immat Gran (auto) 0.07 H K/mm3 (0.00-0.031) Absolute Neuts (auto) 8.9 H K/mm3 (1.3-6.7) Absolute Nucleated RBC 0.000 K/mm3 (0.0-0.012) Nucleated RBC % 0.0 % (0.0-0.2) % Immature Plt Fraction 25.6 H % (0.9-11.2) Sodium 135 L mmol/L (137-145) Potassium 3.8 mmol/L (3.4-5.0) Chloride 103 mmol/L (98-107) Carbon Dioxide 21 L mmol/L (22-30) Anion Gap 11 mmol/L (4-12) BUN 12 mg/dL (7-17) Creatinine 0.70 mg/dL (0.7-1.0) Estim Creat Clear Calc Not Reportable Estimated GFR > 60 (59 - ) Glucose 57 L* mg/dL (65-110) Uric Acid 5.6 mg/dL (2.5-7.5) Calcium 10.0 mg/dL (8.4-10.2) Total Bilirubin 0.4 mg/dL (0.2-1.3) AST 49 H U/L (14-36) ALT 46 H U/L (6-35) Alkaline Phosphatase 265 H U/L (38-126) Total Protein 7.0 g/dL (6.3-8.2) Albumin 3.5 g/dL (3.5-5.1) Urine Color Yellow (Yellow) Urine Appearance Clear (Clear) Urine pH 8.0 (5.0-9.0) Ur Specific [place] 1.009 (1.001-1.035) Urine Protein Negative mg/dL (Negative) Urine Glucose (UA) Negative mg/dL (Negative) Urine Ketones Negative mg/dL (Negative) Ur Blood (Man) Negative (Negative) Urine Nitrate Negative (Negative) Urine Bilirubin Negative (Negative) Urine Urobilinogen 0.2 mg/dL (<2.0) Leukocyte Esterase Rfl Trace H VERNON/UL (Negative) Urine RBC 0-2 /hpf (0-2) Urine WBC 0-5 /hpf (0-3) Ur Squamous Epith Cells None seen /hpf (Few) Urine Bacteria None seen /hpf Urine Casts 0-2 U Random Total Protein 11 mg/dL Urine Creatinine 50.7 mg/dL Protein/Creat Ratio 2 0.22 H mg/mg (0-0.20) RPR HIV 1&2 Ab/P24 Ag 4thGn Blood Type Antibody Screen 11/28/23 11/29/23 18:28 04:43 WBC 10.7 H K/mm3 (4.5-10.0) RBC 3.56
--- NOTE | 2023-11-29 07:37 | P.PNAN_ITS ---
Anes - Eval Final PreProcedure Day of Procedure 11/29/23 07:37 Patient weight: overweight Heart: regular rate and rhythm Lungs: clear to auscultation Airway: Mallampati scale class II Neurological: alert and oriented Last oral intake: >/= 8 hours ASA classification: III Emergent: no Anesthetic plan: proceed Anesthesia type and monitoring: regional spinal and standard monitoring Results Review: All pre-operative results and documents have been reviewed as part of the pre- operative evaluation. Informed Consent: The patient's anesthetic plan and its attendant risks and benefits were discussed with the patient/family/POA. Questions were solicited and answers provided to the satisfaction of the patient/family/POA.
[2023-11-29] MEDS: ceFAZolin 2 GM/D5W 50 ML 2 GM/50 ML BAG IVPB (07:42)
[2023-11-29] MEDS: OXYTOCIN 30 UNITS/NS 500 ML 30 UNITS/500 ML BAG 125 UNITS IV CONT (09:10)
--- NOTE | 2023-11-29 09:23 | W.PM.OBCSD ---
OB - Delivery Note Procedure Delivery date: 11/29/23 Pre-op diagnosis: Breech Presentation and Gestational Hypertension Post-op Diagnosis: Same Induction method: None Delivery monitor: External FHT Prior to decision for section, [facility] labor guidelines were considered and discussed with the patient and staff. Decision made to proceed with the section.: Yes Procedure Performed: Primary Surgeon: Quintin Aguirre MD Anesthesia type: Epidural Description of Procedure/Findings: Findings female David breech presentation loose nuchal cord. ultrasound performed and or and confirmed persistent breech. After informed consent, risks and benefits of the procedure was discussed with the patient. The patient was taken to the operating room where she was placed in the dorsal lithotomy position with leftward tilt. After the prior placed epidural anesthesia was found to be adequate, she was then prepped and draped in the usual sterile fashion. A Pfannenstiel skin incision was made with a scalpel and carried through to the underlying layer of fascia. The fascia was then nicked in the midline, extending bilaterally. The fascia was dissected off the rectus muscles bluntly and sharply, superiorly and inferiorly. The rectus muscles were in the midline, and peritoneum was identified and entered bluntly. The pelvic organs were visualized. The bladder blade was then inserted. The bladder was displaced below the area of the lower uterine segment incision. The low transverse uterine incision was then made with the scalpel. The buttocks were visualized with fundal pressure the buttocks was delivered and then the legs were flexed and delivered. The torso was delivered, the arms were flexed and delivered and the head was delivered in a flexed position loose nuchal cord was manually reduced. The nose and mouth suctioned. The cord was clamped twice and cut. The was then handed off to the awaiting pediatric staff. The placenta was then delivered manually. The uterine cavity was sponge curretted. The uterus was then exteriorized. The uterine incision was then closed with 0 vicryl in a running locked fashion. A figure of eight of 0 vicryl at the left of incision was used for hemostasis. Hemostasis noted. A second layer of 0 vicryl was used in an imbricating fashion for hemostasis. posterior cul-de-sac was cleared of debris. The uterus was then returned to the abdomen. Bilateral gutters were cleared off all clots and debris. The uterine incision was noted to be hemostatic. Interceed placed on uterine incision. The muscle bellies were inspected and noted to be hemostatic. The subfascial layer was noted to be hemostatic, and the fascia was closed with 0 Vicryl in a running fashion. The skin was closed with 4.0 Vicryl subcutaneously on a Keif needle Skin dermabond applied at incision. All instruments, needle, and lap counts were correct x3. The patient was taken to the recovery room in stable condition. Estimated Blood Loss: 330 Drains: No Packing: No Pathology: Yes ( placenta and cord) Complications: No immediate complications Condition: Stable Disposition: Floor [place] Baby Date of : 11/29/23 Time of : 08:07 Gestational Age by Date: 37 gender: Female Weight (pounds): 6 Weight (ounces): 11 presentation: david breech position: Other ( david breech) Placenta delivery description: Manual Removal Cord Vessel Description: 3 Vessels, Nuchal Cord and Loose
--- NOTE | 2023-11-29 11:00 | OBPPTRN ---
Patient transferred to post room #282 via stretcher. Support person present. Oriented to unit, room, information board, rooming in, admission packet and security measures. Patient verbalizes understanding.
[2023-11-29] MEDS: KETOROLAC 15 MG/ML VIAL (*BKC) IV PUSH ×2 (11:27→17:47)
[2023-11-29] MEDS: ACETAMINOPHEN 325 MG TABLET 650 MG PO ×2 (11:28→17:46)
[2023-11-29] MEDS: SIMETHICONE 80 MG TAB.CHEW PO ×2 (11:28→17:47)
--- NOTE | 2023-11-29 12:45 | PC.NURSE ---
Introductions were made, then consulted with patient to assess needs related to . Mother led the conversation with her?plans to feed?her infant and the?experience so far. Encouraged understanding of the benefits of skin to skin, stimulating with massage touch, changing positions to encourage wakefulness, how to watch for early feeding cues, responsive feeding, feeding on demand (aiming for 8-12 times in 24 hours, about every 2-3 hours), milk production, building/maintaining a milk supply, duration of feeding, signs of adequate intake/output and how to record on the feeding sheet. Mother states that she is very nervous and has a lot of questions. Reviewed positioning and ear, shoulder, hip alignment, supporting the breast to facilitate a deep latch, asymmetrical latch (off-center), leading with the chin with a big, open, wide gape and body close to mother. Infant latched to the right breast in cross cradle position and sucked 4-5 times and fell asleep at the breast. Infants diaper was changed and infant was awake briefly then back to sleep on mom. Mother will do skin to skin and attempt to feed again in 30 minutes. Mother will call for help when she is ready to nurse . Mother voiced understanding of skin to skin, stimulating with massage touch, responsive feedings, hand expressed colostrum, talking to to encourage if it has been 2 -2.5 hours since the start of the last , to call if does not latch, or if there is discomfort with . Communication board updated with RN phone number and name. Reported to the Primary RN.
--- NOTE | 2023-11-29 14:30 | PC.NURSE ---
Called to room for help with latch. is sleepy upon entering room. Parents are able to arouse infant and infant made several attempt to latch to the left breast. Mother needs assistance with positioning for feedings. unable to maintain latch on left side and will take a few sucks and come off the breast. After multiple attempts, we switched to the right side in cross cradle position. latched optimally to the left breast in cross cradle position and is maintaining latch. Observed 5 minutes of the feeding and discussed with mother to call for assistance if she needs help switching to the left side. Educated mother about not limiting feedings in the early days and to begin on the opposite side with the next feeding if infant only nurses on the right breast this feeding. Primary RN updated.
[2023-11-29] MEDS: KCL 20 MEQ/D5/0.45% SOD CHL 1,000 ML 125 ML IV CONT (16:02)
[2023-11-29] MEDS: DOCUSATE SODIUM 100 MG CAPSULE PO (17:47)
[2023-11-29] MEDS: LIDOCAINE 5% PATCH 1 PATCH TRANSDERM (17:51)
[2023-11-30] VITALS (7 sets, daily range): BP systolic 114–129; BP diastolic 66–88; PULSE 72–99; RESP 16–20; TEMP 36.2–36.8; O2SAT 97–100
[2023-11-30] MEDS: KETOROLAC 15 MG/ML VIAL (*BKC) IV PUSH (00:04)
[2023-11-30] MEDS: ACETAMINOPHEN 325 MG TABLET 650 MG PO ×5 (00:04→23:45)
[2023-11-30 04:39] LABS: Basophils Absolute Auto 0.1 K/mm3 (0.0-0.1); Basophils Percent Auto 0.4 % (0.2-1.2); Eosinophils Absolute Auto 0.3 K/mm3 (0-0.3); Eosinophils Percent Auto 1.9 % (0-4.4); Hematocrit 34.7 % (37.0-47.0); Hemoglobin 11.6 g/dL (12.0-15.0); Immature Granulocyte Absolute 0.08 K/mm3 (0.00-0.031); Immature Granulocyte Percent A 0.6 % (0-0.5); Immature Platelet Fraction Pct 22.9 % (0.9-11.2); Lymphocytes Absolute Auto 1.88 K/mm3 (0.9-3.2); Lymphocytes Percent Auto 14.4 % (18.3-44.2); Mean Corpuscular HGB Conc 33.4 g/dl (32-36); Mean Corpuscular Hemoglobin 31.6 pg (26-34); Mean Corpuscular Volume 94.6 fl (80-100); Mean Platelet Volume 14.5 fl (7.4-10.4); Monocytes Absolute Auto 0.8 K/mm3 (0.1-0.6); Monocytes Percent Auto 5.8 % (2.6-8.5); Neutrophils Percent Auto 76.9 % (45.5-73.1); Platelet Count Result 124 k/mm3 (150-375); Red Blood Count 3.67 M/mm3 (4.2-5.4); Red Cell Distribution Width 13.1 % (11.5-14.5)
[2023-11-30] MEDS: IBUPROFEN 600 MG TABLET PO ×4 (05:45→23:45)
--- NOTE | 2023-11-30 08:30 | PC.NURSE ---
This RN checked in on mother and , while doing so, mother states that she had questions about the [id number] feeding plan that was established overnight. This RN reviewed what a [id number] feeding plan entails and informed mother that this is not a physician order and it is not medically necessary at this time. Reiterated that if she would like to supplement after , this would also be fine. Mother states that she would like to exclusively breastfeed until [id number] Dixon aware of this plan of care and agrees that supplementation is not needed at this time and mother can remain exclusively . A weight on infant will be checked again at 1600 today, primary RN updated about weight check ordered by Dr. Dixon.
--- NOTE | 2023-11-30 08:50 | PC.NURSE ---
Called to bedside for help with latching . Mother needs education on positioning in a position where she feels comfortable. placed cross cradle and latched optimally to the right breast. Multiple swallows were witnessed and mother denies pain. Discussed that sitting in a chair for next feeding may be more comfortable for her and experimenting with different positions to find what works will make her feel more comfortable. Mother agrees and will call this RN for next feeding if needed.
[2023-11-30] MEDS: HYDROcodone/acetaminophen (*CRX) 5-325 MG TABLET 1 TAB PO ×2 (10:10→21:10)
--- NOTE | 2023-11-30 10:10 | PM.OBPNVD ---
OB - PN: Subj Subjective Date/time seen: 11/30/23 10:10 <Paty Brewer APRN - Last Filed: 11/30/23 11:23> Interval history: she had ambulated to rest from. She complained of a rash that she had before her that was itchy. <Quintin Aguirre MD - Last Filed: 11/30/23 11:35> Patient comments: tolerating diet; no flatus present <Paty Brewer APRN - Last Filed: 11/30/23 11:23> [place] feeding status: exclusively breast feeding <Paty Brewer APRN - Last Filed: 11/30/23 11:23> OB - PN: Obj Data Labs CBC & Chem 7: 11/30/23 03:23 11/29/23 04:43 <Paty Brewer APRN - Last Filed: 11/30/23 11:23> Labs: Laboratory Results - last 24 hr 11/30/23 03:23 WBC 13.0 H RBC 3.67 L Hgb 11.6 L Hct 34.7 L MCV 94.6 MCH 31.6 MCHC 33.4 RDW 13.1 Plt Count 124 L MPV 14.5 H Immature Gran % (Auto) 0.6 H Neut % (Auto) 76.9 H Lymph % (Auto) 14.4 L [place] % (Auto) 5.8 Eos % (Auto) 1.9 Baso % (Auto) 0.4 Lymph # (Auto) 1.88 [place] # (Auto) 0.8 H Eos # (Auto) 0.3 Baso # (Auto) 0.1 Abs Immat Gran (auto) 0.08 H Absolute Neuts (auto) 10.0 H Absolute Nucleated RBC 0.000 Nucleated RBC % 0.0 % Immature Plt Fraction 22.9 H <Paty Brewer APRN - Last Filed: 11/30/23 11:23> OB - PN A/P Plan day: 1 <Paty Brewer APRN - Last Filed: 11/30/23 11:23> Comments: routine post op care. pt doing well. <Paty Brewer APRN - Last Filed: 11/30/23 11:23> routine post op care. pt doing well. Will try Benadryl topical cream for the rash on the abdomen. <Quintin Aguirre MD - Last Filed: 11/30/23 11:35> Time Spent With Patient Time: Total time spent is greater than 50% in coordination of care (as documented) at patient's floor/unit and/or counseling patient: <Paty CrossSHIRLEY trivedi - Last Filed: 11/30/23 11:23> Exam Const: General: comfortable and no acute distress <Paty BrewerSHIRLEY - Last Filed: 11/30/23 11:23> Resp: Effort & Inspection: normal respiratory effort <Paty MadridSHIRLEY mandel - Last Filed: 11/30/23 11:23> Auscultation: clear to auscultation bilaterally <Paty CrossDAVID trivediN - Last Filed: 11/30/23 11:23> Cardio: Rate: regular rate <Paty MadridDAVID mandelN - Last Filed: 11/30/23 11:23> GI: Auscultation: normal bowel sounds <Paty MadridSHIRLEY mandel - Last Filed: 11/30/23 11:23> Other: incision clean, dry and intact <Paty MadridDAVID mandelN - Last Filed: 11/30/23 11:23> Other: incision clean, dry and intact Small healing papular bumps on the abdomen at her stretch santos <Quintin Aguirre MD - Last Filed: 11/30/23 11:35> Extrem: General: normal to inspection, capillary refill normal and no calf tenderness <Paty CrossSHIRLEY trivedi - Last Filed: 11/30/23 11:23> Psych: Mental Status: mental status grossly normal <Paty MadridSHIRLEY mandel - Last Filed: 11/30/23 11:23> Affect: normal affect <Paty CrossSHIRLEY trivedi - Last Filed: 11/30/23 11:23>
[2023-11-30] MEDS: MULTIVIT/MIN/PREN/FOL AC/IRON TABLET 1 TAB PO (10:11)
[2023-11-30] MEDS: DOCUSATE SODIUM 100 MG CAPSULE PO ×2 (10:11→17:23)
[2023-11-30] MEDS: SIMETHICONE 80 MG TAB.CHEW PO ×2 (10:11→17:23)
--- NOTE | 2023-11-30 10:35 | WPDANLDPN2 ---
Anes-Prog Note L&D Date/Time: 11/30/23 10:35 Comfortable throughout: section Neuraxial method: spinal Epidural/Spinal procedure site: clean & non-tender Neuro status: Neuro function grossly intact. Cardiovascular status: normal Respiratory status: normal Airway patency: baseline Mental status: baseline Post-Op hydration status: normal Vital Signs: Last Vital Signs Temp 36.8 C 11/30/23 07:50 Pulse 77 11/30/23 07:50 Resp 16 11/30/23 07:50 BP 123/81 11/30/23 07:50 Pulse Ox 99 11/30/23 07:50 O2 Del Method Room Air 11/29/23 10:45 Pain score (VAS): 3/10 I/O: Intake & Output 11/29/23 11/30/23 11/30/23 23:59 07:59 15:59 Intake Total 500 1500 Output Total 550 850 500 Balance -50 650 -500 Post-procedural complaints: none Patient feedback: Patient satisfied with anesthetic care.
[2023-11-30] MEDS: DIPHENHYDRAMINE 1%/ZINC 0.1% CREAM 30 GM TUBE 1 APPLIC TOPICAL ×2 (11:32→14:39)
--- NOTE | 2023-11-30 11:35 | PM.OBDSVD ---
DS: Admitting Diagnosis Admitting Diagnosis 1. Breech presentation 2. Gestational hypertension DS: Discharge Diagnosis Discharge Diagnosis (1) Breech presentation: Code(s): O32.1XX0 - Maternal care for breech presentation, not applicable or unspecified Status: Acute (2) Gestational hypertension: Code(s): O13.9 - Gestational [-induced] hypertension without significant proteinuria, unspecified trimester Status: Acute OB - DS: Summary Hospital Course Hospital Course: she was admitted on the morning of November 27 for planned external cephalic version. The external cephalic version was unsuccessful. During her admission and after the version she had persistent elevated blood pressures not severe range. Denied any severe PIH symptoms. She did have PIH labs and the liver function tests were mildly elevated. Also after the external cephalic version the heart tracing was not reactive. She did get additional prolonged monitoring and had a BPP which was 6/10. She had continue monitoring the tracing did become reactive. Follow-up BPP approximately 6 hours after showed a 4/8. Patient had been informed of the recommendation for delivery due to gestational hypertension and via section since external cephalic version was unsuccessful. She had an uncomplicated primary section on February 27. She did well postoperatively. Baby did well postoperatively. No signs or symptoms of severe hypertension. on postop day 1 she did complain of a rash that she had had before surgery at her stretch santos and topical Benadryl was ordered. OB Procedures : NST, PIH Mgmt and Ultrasound OB Procedures Intrapartum: OB Procedures: : None Peripartum Data Infant Delivery Method: Section Procedures: Procedures Operation Date: 11/29/23 07:30 Actual Procedure Side Surgeon p Section Quintin Aguirre MD complications: none Status at Discharge Functional status at discharge: independent ambulation Time Spent with Patient Time attestation: Total time spent providing and/or coordinating discharge services: Exam Const: General: cooperative Orientation/consciousness: oriented to person, oriented to place and oriented to time HENMT: Face/Nose/Sinus: Normal external nose present Eyes: General: appearance normal, both eyes and all related structures Resp: Effort & Inspection: normal respiratory effort GI: Inspection: normal to inspection Other: Incision intact Skin: General skin exam: normal color Neuro: General: oriented to person, oriented to place and oriented to time Extrem: General: normal to inspection and no calf tenderness Psych: Appearance: grossly normal Mental Status: mental status grossly normal DS: Data Data Completed and Pending Pending studies at discharge: Pending at discharge 11/29/23 09:30 Cytology [PTH] Routine Labs on day of discharge: Labs from last 24 hours 11/30/23 03:23 WBC 13.0 H RBC 3.67 L Hgb 11.6 L Hct 34.7 L MCV 94.6 MCH 31.6 MCHC 33.4 RDW 13.1 Plt Count 124 L MPV 14.5 H Immature Gran % (Auto) 0.6 H Neut % (Auto) 76.9 H Lymph % (Auto) 14.4 L [place] % (Auto) 5.8 Eos % (Auto) 1.9 Baso % (Auto) 0.4 Lymph # (Auto) 1.88 [place] # (Auto) 0.8 H Eos # (Auto) 0.3 Baso # (Auto) 0.1 Abs Immat Gran (auto) 0.08 H Absolute Neuts (auto) 10.0 H Absolute Nucleated RBC 0.000 Nucleated RBC % 0.0 % Immature Plt Fraction 22.9 H Discharge Plan Discharge Attending physician on discharge: Quintin Aguirre Consulting providers: Jose Su Jr.; Rasheeda Pineda; Diego Haddad; Aayush Hancock V.; Gianfranco Fernández; Paty Brewer; Elizabeth Burkett Discharging Clinician: Ladarius Blevins Patient Disposition: Home, Self-Care Activity: may shower, no straining, no driving and pelvic rest Diet: regular Wound Care Instru
--- NOTE | 2023-11-30 13:44 | PC.NURSE ---
1300. This RN called to room to assist with . Mom reports baby has been to sleepy to nurse but is due to eat, so after multiple attempts at the breast she pumped on the L side and expressed 3ml of BM. The infants father fed the 3ml to baby, and mom is asking if she should pump the other breast and attempt to feed that to baby as well. This RN suggested we attempt to bring baby back to the breast after the 3ml bc sometimes babies get a little eager to nurse after they are given a little breastmilk. Baby latched well to the R breast in cross-cradle position and remained latched for 10 more minutes while this nurse stayed in the room. audible swallows heard from baby, mom and dad educated on listening for these sounds. Reviewed signs of early feeding cues with mom and dad and they both verbalized understanding.
[2023-12-01 03:53] VITALS: BP 127/82
--- NOTE | 2023-12-01 08:05 | PC.NURSE ---
Introductions were made, then consulted with patient to assess needs related to . Mother led the conversation with her?plans to feed?her infant and the?experience so far. Mother denies pain with latch. Due to infant weight loss, there is a provider order for baby to be supplemented after each feeding. Discussed with mom the need for frequent nipple stimulation, whether that is baby to breast or pumping. We discussed no need for pumping if breastfeeds well, but mom may pump if desired. Will see patient latch today. Resources used for education were name written on the communication board, and the mom/baby guide. Parents voiced understanding of information, demonstrated learning and will call if there is a request for assistance. Reported to the Primary RN.
[2023-12-01] MEDS: IBUPROFEN 600 MG TABLET PO ×3 (08:10→21:30)
[2023-12-01] MEDS: ACETAMINOPHEN 325 MG TABLET 650 MG PO ×3 (08:10→21:34)
[2023-12-01 08:11] VITALS: BP 130/87; PULSE 88; RESP 18; TEMP 37.3; O2SAT 97
[2023-12-01] MEDS: SIMETHICONE 80 MG TAB.CHEW PO ×2 (08:11→15:25)
[2023-12-01] MEDS: MULTIVIT/MIN/PREN/FOL AC/IRON TABLET 1 TAB PO (08:11)
[2023-12-01] MEDS: DOCUSATE SODIUM 100 MG CAPSULE PO ×2 (08:11→17:11)
[2023-12-01] MEDS: DIPHENHYDRAMINE 1%/ZINC 0.1% CREAM 30 GM TUBE 1 APPLIC TOPICAL ×3 (08:38→21:49)
[2023-12-01] MEDS: HYDROcodone/acetaminophen (*CRX) 5-325 MG TABLET 1 TAB PO ×2 (09:42→17:12)
--- NOTE | 2023-12-01 10:29 | PM.OBPNVD ---
OB - PN: Subj Subjective Date/time seen: 12/01/23 10:29 S: Pain well controlled, diet and ambulation tolerated. O: VSS afebrile Abdomen: Positive bowel sounds soft. Fundus nontender. Incision clean dry and intact. Labs: Noted A: Doing well status post primary delivery P: Continue routine postoperative/ care. Potential discharge home tomorrow or Sunday based on how she is feeling. Interval history: she had ambulated to rest from. She complained of a rash that she had before her that was itchy. OB - PN: Obj Data Labs 11/30/23 03:23 11/29/23 04:43 OB - PN A/P Time Spent With Patient Time: Total time spent is greater than 50% in coordination of care (as documented) at patient's floor/unit and/or counseling patient:
--- NOTE | 2023-12-01 10:30 | PM.OBDSVD ---
DS: Admitting Diagnosis Discharge Date 12/02/2023 Admitting Diagnosis DS: Discharge Diagnosis Discharge Diagnosis (1) , delivered: Code(s): O80 - Encounter for full-term uncomplicated delivery Status: Acute OB - DS: Summary Hospital Course Hospital Course: she was admitted on the morning of November 27 for planned external cephalic version. The external cephalic version was unsuccessful. During her admission and after the version she had persistent elevated blood pressures not severe range. Denied any severe PIH symptoms. She did have PIH labs and the liver function tests were mildly elevated. Also after the external cephalic version the heart tracing was not reactive. She did get additional prolonged monitoring and had a BPP which was 6/10. She had continue monitoring the tracing did become reactive. Follow-up BPP approximately 6 hours after showed a 4/8. Patient had been informed of the recommendation for delivery due to gestational hypertension and via section since external cephalic version was unsuccessful. She had an uncomplicated primary section on February 27. She did well postoperatively. Baby did well postoperatively. No signs or symptoms of severe hypertension. on postop day 1 she did complain of a rash that she had had before surgery at her stretch santos and topical Benadryl was ordered. OB Procedures : None OB Procedures Intrapartum: OB Procedures: : None Peripartum Data Procedures: Procedures Operation Date: 11/29/23 07:30 Actual Procedure Side Surgeon p Section Quintin Aguirre MD Time Spent with Patient Time attestation: Total time spent providing and/or coordinating discharge services: DS: Data Data Completed and Pending Pending studies at discharge: Pending at discharge 11/29/23 09:30 Cytology [PTH] Routine Discharge Plan Discharge Attending physician on discharge: Quintin Aguirre Consulting providers: Jose Su Jr. Discharging Clinician: Ladarius Blevins Patient Disposition: Home, Self-Care Activity: may shower, no straining, no driving and pelvic rest Diet: regular Wound Care Instructions: incision open to air Patient Instructions: Antibiotic Form Stand Alone Forms: General Discharge Information Follow-up/Referrals: Quintin Aguirre MD [Physician] - Call for Appointment (Should be seen in two weeks) Discharge Medications: New hydrocodone-acetaminophen 5-325 mg Tablet 1 tablet PO Q3H PRN (Reason: Breakthrough Pain Rated 4-6) Qty: 20 0RF Continued DHA 200 mg capsule 200 mg PO DAILY Date of admission: 11/28/23 07:01 Primary Care Provider: Matt,Luis Admitting Provider: Quintin Aguirre Attending physician on admission: Quintin Aguirre Condition: Stable
[2023-12-01 15:00] VITALS: BP 136/91; PULSE 96; RESP 98; TEMP 36.9; O2SAT 98
[2023-12-01 17:00] VITALS: BP 130/91; PULSE 90; RESP 18; TEMP 36.8; O2SAT 98
[2023-12-01 21:37] VITALS: BP 128/88; PULSE 94; RESP 18; TEMP 36.7; O2SAT 98
[2023-12-01] MEDS: LIDOCAINE 5% PATCH 1 PATCH TRANSDERM (21:48)
[2023-12-01 23:55] VITALS: BP 112/70; PULSE 90; RESP 18; TEMP 37.2; O2SAT 99
[2023-12-02] MEDS: ACETAMINOPHEN 325 MG TABLET 650 MG PO ×2 (03:34→09:25)
[2023-12-02 03:40] VITALS: BP 114/78; PULSE 80; RESP 18; TEMP 36.9; O2SAT 97
[2023-12-02 08:02] VITALS: BP 137/92; PULSE 94; RESP 18; TEMP 36.6; O2SAT 100
[2023-12-02] MEDS: MULTIVIT/MIN/PREN/FOL AC/IRON TABLET 1 TAB PO (09:24)
[2023-12-02] MEDS: DOCUSATE SODIUM 100 MG CAPSULE PO (09:24)
[2023-12-02] MEDS: DIPHENHYDRAMINE 1%/ZINC 0.1% CREAM 30 GM TUBE 1 APPLIC TOPICAL (09:24)
[2023-12-02] MEDS: IBUPROFEN 600 MG TABLET PO (09:25)
[2023-12-02] MEDS: SIMETHICONE 80 MG TAB.CHEW PO (09:25)
[2023-12-02] MEDS: HYDROcodone/acetaminophen (*CRX) 5-325 MG TABLET 1 TAB PO ×2 (09:26→13:47)
[2023-12-03 10:37] VITALS: BP 129/83; PULSE 104; RESP 16; TEMP 37.1; O2SAT 100
== END 2023-12-02 14:55 | disposition home or self-care (01) | DRG 788 ==
LOC: ANHOB2 12-02 11:35 → ANHOBPP 12-05 06:23
PROVIDERS: Admitting Provider Obstetrics & Gynecology; PCP Hospitalist; Visit Provider Obstetrics & Gynecology
PROC: 10D00Z1 Extraction of Products of Conception, Low, Open Approach (ICD-10-PCS; CPT 59514; principal; 2023-11-29 07:30)
DX: O32.1XX0 Maternal care for breech presentation, not applicable or unspecified (principal); O13.4 Gestational [pregnancy-induced] hypertension without significant proteinuria, complicating childbirth; O69.81X0 Labor and delivery complicated by cord around neck, without compression, not applicable or unspecified; O99.72 Diseases of the skin and subcutaneous tissue complicating childbirth; Z3A.37 37 weeks gestation of pregnancy; Z37.0 Single live birth; R21 Rash and other nonspecific skin eruption; Z87.891 Personal history of nicotine dependence
CPT/HCPCS: 36415; 59412; 76819; 80053; 81001; 82570; 84156; 84550; 85025; 85027; 85055; 86592; 86703; 86850; 86900; 86901; 88307; A9270; G0432; J0690; J1885; J2274; J2371; J2405; J2590; J2795; J3105; J3480; J7120

== ENCOUNTER 2024-10-30 08:01 | Emergency (ER) | payer OTHER, SELFPAY ==
--- NOTE | 2024-10-30 08:03 | ED.EAR ---
HPI - Ear Problem General Chief complaint: Ear Stated complaint: ear itching Time Seen by Provider: 10/30/24 08:09 Source: patient, RN notes reviewed and old records reviewed Mode of arrival: ambulatory Limitations: no limitations History of Present Illness HPI Narrative: 24-year-old female presents to the [facility] with complaints bilateral itchy ears for over a month. Does use Q-tips. Denies any pain. Denies fevers Related Data Home Medications ?Medication ?Instructions ?Recorded ?Confirmed ?Last Taken ?Type No Home Medications 10/30/24 10/30/24 Unknown History Allergies Allergy/AdvReac Type Severity Reaction Status Date / Time ciprofloxacin Allergy Unknown THROAT Verified 10/30/24 08:09 SWELLING dexamethasone Allergy Unknown THROAT Verified 10/30/24 08:09 SWELLING Review of Systems Review of Systems: All systems reviewed & are unremarkable except as noted in HPI and below Constitutional: Constitutional: Reports no additional constitutional complaints ENT: Reports as per HPI Musculoskeletal: Musculoskeletal: Reports no additional musculoskeletal complaints Integumentary/Breasts: Skin/Breast: Reports system reviewed and no additional complaints, except as docu PMFSH Past Medical History Medical History Overweight (BMI 25.0-29.9) Low platelet count Gestational hypertension Breech presentation Depression Anxiety Surgical History Surgical History Hx of section S/P cystoscopy [place] teeth removed Family History Family History Other Unknown family medical history Social History Social History Smoking status: Never smoker Tobacco type: e-cigarettes/vaping Alcohol intake: current Substance use: never Substance use type: marijuana Do You Feel Safe in your Home?: Yes Lack of Transportation: No Lack of Food: Never True Current Housing: I Have Housing Concerned About Future Housing: No Difficulty Paying Gas/Electric Bills: No Difficulty Paying for Meds: No Currently Unemployed: No Education: Bachelor's Degree Difficulty w/ Childcare or Family Care: No Spiritual care concerns: No Comments At the time of my signature, I reviewed and agree with the nursing past medical, surgical, social, and family history. There is no relevant family history pertinent to the patient complaint. Exam Const: General: cooperative, healthy appearing, comfortable, no acute distress, well developed, alert and well nourished Nutritional Appearance: well nourished Orientation/consciousness: patient oriented x3 Limitations: no limitations HENMT: Head: normal to inspection Ears: hearing grossly normal bilaterally, external ears normal, TM's normal bilaterally, EAC's normal, mastoids normal and no periauricular adenopathy Face/Nose/Sinus: Normal external nose present, Normal nares present and Normal nasal mucous membranes and turbinates present Face and sinus: normal facial exam and face symmetric Mouth: Yes Normal oral and palatal mucosa present, Yes lip normal, Yes tongue normal and Yes moist mucous membranes Eyes: General: appearance normal, both eyes and all related structures Alignment and Position: alignment normal Neck: Neck: normal visual inspection, full ROM, no lymphadenopathy and no meningeal signs Chest: Chest palpation & inspection: normal inspection of the chest Resp: Effort & Inspection: normal respiratory effort and able to speak in complete sentences Cardio: Rate: regular rate Skin: General skin exam: normal color and no rashes or lesions noted Neuro: General: patient oriented x3, gait normal, moves all extremities and no meningeal signs Cognition (Neuro): normal cognition Speech: normal speech Gait exam (Neuro): Normal gait present Extrem: General: normal to inspection, full ROM, capillary refill normal and normal gait Psych: Appearance: grossly normal and well kempt Mental Status: mental status grossly normal Speech and movement: Normal speech and movement present and Clear speech present Affect: normal affect Attitude: cooperative Course Course Level of Care: Express Care Visit Vital Signs Vital signs: Vital Signs Temperature 97.6 F 10/30/24 08:09 Pulse Rate 84 10/30/24 08:09 Respiratory Rate 18 10/30/24 08:09 Blood Pressure 112/75 10/30/24 08:09 Pulse Oximetry 99 10/30/24 08:09 Oxygen Delivery Room Air 10/30/24 08:09 Temperature 97.6 F 10/30/24 08:09 Pulse Rate 84 10/30/24 08:09 Respiratory Rate 18 10/30/24 08:09 Blood Pressure 112/75 10/30/24 08:09 Pulse Oximetry 99 10/30/24 08:09 Oxygen Delivery Room Air 10/30/24 08:09 Reviewed Medical Decision Making MDM Narrative Medical decision making narrative: Patient sitting comfortably in exam room. Nontoxic, vitals stable. Patient in no acute distress Patient presents with at least 1 month history of bilateral itching ears. No pain. No acute findings noted on exam Patient appropriate for outpatient treatment with close follow-up Discharge instructions reviewed with patient, as well as provided in writing per nursing staff. The instructions also include specific and strict return/GO TO THE ER as well as f/u information. All questions have been answered, and the patient deny any further questions with discharge and discharge plan. Some parts of this dictation were generated by voice recognition software and may contain typographical and/or grammatical inaccuracies. Differential Diagnosis Differential Diagnosis: Otitis media, serous otitis, otitis externa Medical Records Medical records reviewed: Yes I reviewed the external patient's medical records. Vital Signs Vital Signs: Vital Signs Temperature 97.6 F 10/30/24 08:09 Pulse Rate 84 10/30/24 08:09 Respiratory Rate 18 10/30/24 08:09 Blood Pressure 112/75 10/30/24 08:09 Pulse Oximetry 99 10/30/24 08:09 Oxygen Delivery Room Air 10/30/24 08:09 Temperature 97.6 F 10/30/24 08:09 Pulse Rate 84 10/30/24 08:09 Respiratory Rate 18 10/30/24 08:09 Blood Pressure 112/75 10/30/24 08:09 Pulse Oximetry 99 10/30/24 08:09 Oxygen Delivery Room Air 10/30/24 08:09 Reviewed Lab Data Lab results reviewed: Yes I reviewed the patient's lab results. Labs: Reviewed Critical Care Time Critical Care Time Critical Care Time: No Discharge Plan Discharge Clinical Impression: Ear itching Patient Disposition: Home Condition: Stable Instructions: Antibiotic Form, Allergies (ED) Additional Instructions: Do not use Q-tips Follow-up care provider You can try taking Claritin or Zyrtec to help with the symptoms Patient Language: Venezuelan Prescriptions: No Action No Home Medications Follow-up/Referrals: Matt,MD Lusi [Primary Care Provider] - 2 Weeks ([facility] follow-up) Time of Disposition: 08:14
--- OUTSIDE RECORDS SUMMARY | 2024-10-30 08:04 | XMS_ITS | Clinical Summary ---
Author Organization [facility] Address [address] [place] [address] Phone Care Team Providers Care Payroll Coordinator Name Role Phone Unavailable Primary Care Provider Unavailabl e Encounters Date Type Department Care Team Description 10/08/2024 External Device Data [facility] ABSTRACTION Provider, Abstract 10/07/2024 External Device Data [facility]STRACTION Provider, Abstract 09/09/2024 External Device Data [facility]STRACTION Provider, Abstract 08/14/2024 External Device Data [facility] Provider, Abstract 08/14/2024 External Device Data [facility]STRACTION Provider, Abstract 08/13/2024 External Device Data [facility] ABSTRACTION Provider, Abstract 08/12/2024 External Device Data [facility] ABSTRACTION Provider, Abstract from Last 3 Months Social History Tobacco Use Types Packs/Day Years Used Date Smoking Tobacco: Never Assessed Comments Unknown Sex and Gender Information Value Date Recorded Sex Assigned at Not on file Legal Sex Female 11:44 AM CDT Gender Identity Not on file Sexual Orientation Not on file Plan of Treatment Health Maintenance Due Date Last Done Comments CERVICAL CANCER SCREENING 01/26/2020 HPV/Cotest (21-29) 01/26/2020 PAP SMEAR 01/26/2020 INFLUENZA VACCINE (#1) 2024 03/07/2021, 2019 DTAP/TDAP/TD VACCINES (8 - T d or Tdap) 10/12/2031 10/11/2021, 10/03/2010, 07/14/2004, Additional history exists HEPATITIS B VACCINES Completed 1999, 1999, 1999 HPV VACCINES Completed 05/15/2011, 11/24, 10/03/2010 Insurance [facility] [id number]
--- OUTSIDE RECORDS SUMMARY | 2024-10-30 08:04 | XMS_ITS | Clinical Summary ---
Author Organization [facility] Address [address] [place] [address] Care Team Providers Care Tube Inspector Name Role Phone Luis Gutierrez MD Primary Care Provider [phone] Allergies Active Allergy Reactions Criticality Noted Date Comments Ciprofloxacin-Dexamethasone Anaphylaxis High 018 Medications BLISOVI FE 04/14, 28, 1 mg-20 mcg (21)/75 mg (7) per tablet TAKE 1 TABLET DAILY, CONTINUOUSLY 112 tablet 4 0 Active Active Problems Problem Noted Date Diagnosed Date Migraine without aura and wi thout status migrainosus, not intractable 03/14/2021 Assessment & Plan (02/28/2022 4:39 PM FACILITY MAINTENANCE MECHANIC): Stable, no major issues, would like to discontinue due to concerns regarding OCPs. Will d/c topiromate and observe, if patient has new onset headaches, will evaluate benefit from Beta delia vs other treatment options Assessment & Plan (10/11/2021 2:19 PM CDT): Stable, well controlled; patient reports headaches occur approximately 2 times per month; well controlled Excedrin Continue to prevent 25 mg daily Patient to try Imitrex 50 mg p.r.n. Assessment & Plan (03/14/2021 11:13 AM FACILITY MAINTENANCE MECHANIC): Stable, well controlled; patient reports significant decrease in frequency of headaches on Topamax; difficulty treat breakthrough headaches continue Topamax 25 mg daily, will prescribe sumatriptan 100 mg as needed for headache Hx of major depression 03/29/2018 Encounters Date Type Department Care Team Description 10/22/2024 Nurse Triage [facility] [address] [address] Thuan Farah, RN from Last 3 Months Immunizations Immunization Administration Dates Next Due DTaP 07/14/2004, 1,1999,05/30,1999 HPV, Quadrivalent 05/15/2011,12/09/2010,10/04/19 11 Hep A, Pediatric 07/14/2004,02/02/2004 Hep B, Adolescent or Pediatric 1999,1999,1999 Hib (PRP-D) 07/17/2000, 0,1999,03/22 IPV 07/14/2004, 1,1999,03/22 Influenza, Quadrivalent, Spl it, Preservative Free, Intramuscular 01/08/2020 Influenza, Trivalent, IM (MDV) 03/07/2021 Influenza, Unspecified 03/07/2021,02/09/2006 MMR 07/14/2004,01/27/2000 Meningococcal MCV4P (Menactra) 10/28/2015,2010 Tdap 10/11/2021,10/03/2010 Varicella 10/23/2007,05/18/2000 Surgical History Surgery Date Site/Laterality Comments CYSTOSCOPY TONSILLECTOMY/ADENOIDECTOMY TYMPANOSTOMY TUBE PLACEMENT WISDOM TOOTH EXTRACTION x4 SECTION 11/29/23 Medical History Medical History Date Comments Anxiety Brain concussion Migraines Family History Medical History Relation Name Comments No Known Problems Father Alzheimer's disease Maternal Grandfather Don COPD Maternal Grandfather Don Miscarriages / Stillbirths Mother Tiffany Relation Name Status Comments Father Maternal Grandfather Don Alive Mother Tiffany Social History Tobacco Use Types Packs/Day Years Used Date Smoking Tobacco: Never Smokeless Tobacco: Never Tobacco Cessation:Counseling Given: Not Answered Alcohol Use Standard Drinks/Week Comments Yes 0 (1 standard drink = 0.6 oz pur e alcohol) AUDIT-C Answer Date Recorded Q1: How often do you have a drink containing alc ohol? 2-4 times a month 03/14/2021 Q2: How many drinks containi ng alcohol do you have on a typical day when you are drinking? 1 or 2 03/14/2021 Q3: How often do you have si x or more drinks on one occasion? Never 03/14/2021 PHQ-2 Answer Date Recorded PHQ-2 Total Score (If total score is 3 or more points, staff should administer the PHQ-9) 0 02/13/2022 Comments No Sex and Gender Information Value Date Recorded Sex Assigned at Not on file Legal Sex Female 5:57 AM FACILITY MAINTENANCE MECHANIC Gender Identity Not on file Sexual Orientation Not on file Obstetrics History Para Term AB IAB SAB Ectopic Multiple Livin g Live Births 0 0 0 0 0 0 0 0 0 0 0 Last Filed Vital Signs Vital Sign Reading Time Taken Comments Blood Pressure 118/70 02/13/2022 4:15 PM FACILITY MAINTENANCE MECHANIC Pulse 96 02/13/2022 4:15 PM FACILITY MAINTENANCE MECHANIC Temperature 36.8 C (98.2 F) 02/13/2022 4:15 PM FACILITY MAINTENANCE MECHANIC Respiratory Rate 16 10/11/2021 10:3 8 AM CDT Oxygen Saturation 98% 02/13/2022 4:15 PM FACILITY MAINTENANCE MECHANIC Inhaled Oxygen Concentration - - Weight 77.9 kg (171 lb 12.8 oz) 02/13/2022 4:15 PM FACILITY MAINTENANCE MECHANIC Height 165.1 cm (5' 5) 02/13/2022 4:15 PM FACILITY MAINTENANCE MECHANIC Body Mass Index 28.59 02/13/2022 4:15 PM FACILITY MAINTENANCE MECHANIC Plan of Treatment Health Maintenance Due Date Last Done Comments Hepatitis C Screening 1999 Cervical Cancer Screening 05/02/2022 05/02/2021, 02/2021 Regular Well Visit/Exam 18-64 10/11/2022 10/11/2021, 04/02/2019, 03/13/2018 Depression Screening 02/13/2023 02/13/2022, 03/14/20 Covid-19 Vaccine ( season) 2023 03/07/2021, 07/04/2020, 06/12/2020 Influenza Vaccine (#1) 2024 , 03/07/2021, 03/07/2021, Additional history exists DTaP/Tdap/Td Vaccine (8 - Td or Tdap) 10/12/2031 10/11/2021, 10/03/2010, 07/14/2004, Additional history exists Hepatitis B Screening Completed 1999 , 1999, 1999 Varicella Vaccines Completed 10/23/2007, 05/18/2000 HPV Vaccines Completed 05/15/2011, 11/24, 10/03/2010 Pneumococcal vaccine <65 Aged Out No longer eligible based on patient's age to complete this topic Procedures Procedure Name Priority Date/Time Associated Diagnosis Comments PAP SMEAR WITH HPV Routine 05/02/2021 from Last 3 Months or Most Recently Relevant to Health Maintenance Results * PAP SMEAR WITH HPV (05/02/2021) Scribed Pap Smear w/HPV Normal Historical Provider HEALTH MAINTENANCE Final Result from Last 3 Months or Most Recently Relevant to Health Maintenance Insurance [facility] PL[facility] PL[facility] Care Teams Tube Inspector Relationship Specialty Start Date End Date Luis [place] [address] PCP - General Family Medicine 03/14/21
[2024-10-30 08:09] VITALS: BP 112/75; PULSE 84; RESP 18; TEMP 36.4; O2SAT 99
== END 2024-10-30 08:17 | disposition home or self-care (01) ==
PROVIDERS: Emergency Provider Nurse Practitioner; PCP Hospitalist
DX: H93.8X3 Other specified disorders of ear, bilateral (principal)
CPT/HCPCS: 99211; G0463

== ENCOUNTER 2024-11-27 15:19 | Emergency (ER) | payer OTHER, SELFPAY ==
--- OUTSIDE RECORDS SUMMARY | 2024-11-27 15:21 | XMS_ITS | Clinical Summary ---
Author Organization [facility] Address [address] [place] [address] Phone Care Team Providers Care Pot Puncher Name Role Phone Unavailable Primary Care Provider [...] HPV VACCINES Completed 05/15/2011, 11/24, 10/03/2010 Insurance [email or web address] [id number]
--- OUTSIDE RECORDS SUMMARY | 2024-11-27 15:21 | XMS_ITS | Clinical Summary ---
Author Organization [facility] Address [address] [place] [address] Care Team Providers Care Inspector Precision Assembly Name Role Phone Luis Gutierrez MD Primary Care Provider [phone] Allergies Active Allergy Reactions Criticality Noted Date Comments Ciprofloxacin-Dexamethasone Anaphylaxis High 018 Medications BLISOVI FE 04/14, 28, 1 mg-20 mcg (21)/75 mg (7) per tablet TAKE 1 TABLET DAILY, CONTINUOUSLY 112 tablet 4 0 Active Active Problems Problem Noted Date Diagnosed Date Migraine without aura and wi thout status migrainosus, not intractable 03/14/2021 Assessment & Plan (02/28/2022 4:39 PM BOTTLE INSPECTOR): Stable, no major issues, would like to [...] p.r.n. Assessment & Plan (03/14/2021 11:13 AM BOTTLE INSPECTOR): Stable, well controlled; patient reports significant decrease in frequency of headaches on Topamax; difficulty treat breakthrough headaches continue Topamax 25 mg daily, will prescribe sumatriptan 100 mg as needed for headache Hx of major depression 03/29/2018 Encounters Date Type Department Care Team Description 10/22/2024 Nurse Triage [facility] [address] [address] Thuan Farah, RN from Last [...] on file Legal Sex Female 5:57 AM BOTTLE INSPECTOR Gender Identity Not on file Sexual Orientation Not on file Obstetrics History Para Term AB IAB SAB Ectopic Multiple Livin g Live Births 0 0 0 0 0 0 0 0 0 0 0 Last Filed Vital Signs Vital Sign Reading Time Taken Comments Blood Pressure 118/70 02/13/2022 4:15 PM BOTTLE INSPECTOR Pulse 96 02/13/2022 4:15 PM BOTTLE INSPECTOR Temperature 36.8 C (98.2 F) 02/13/2022 4:15 PM BOTTLE INSPECTOR Respiratory Rate 16 10/11/2021 10:3 8 AM CDT Oxygen Saturation 98% 02/13/2022 4:15 PM BOTTLE INSPECTOR Inhaled Oxygen Concentration - - Weight 77.9 kg (171 lb 12.8 oz) 02/13/2022 4:15 PM BOTTLE INSPECTOR Height 165.1 cm (5' 5) 02/13/2022 4:15 PM BOTTLE INSPECTOR Body Mass Index 28.59 02/13/2022 4:15 PM BOTTLE INSPECTOR Plan of Treatment Health Maintenance Due Date [...] Most Recently Relevant to Health Maintenance Insurance [facility] [place] [address] [facility] Care Teams Inspector Precision Assembly Relationship Specialty Start Date End Date Luis [place] [address] PCP - General Family Medicine 03/14/21
[2024-11-27 15:56] VITALS: BP 124/74; PULSE 102; RESP 18; TEMP 36.6; O2SAT 98
--- NOTE | 2024-11-27 16:42 | ED_ITS ---
HPI - Ear Problem General Chief complaint: Ear Stated complaint: pain in both ears Time Seen by Provider: 11/27/24 16:00 Source: patient Mode of arrival: ambulatory Limitations: no limitations History of Present Illness HPI Narrative: Ashley is a 24-year-old female patient presenting to the clinic today with complaints of bilateral ear pain x1 month. She reports she was seen a couple weeks ago and was diagnosed with fluid behind her eardrum. She reports her symptoms are worsening and wants to be re-evaluated. Feels as though her left ear is more painful than the right ear. Noticed some drainage coming from the left ear. Denies any recent swimming. No fevers, chills, body aches. Has not taken any medications to treat her symptoms. Related Data Allergies Allergy/AdvReac Type Severity Reaction Status Date / Time ciprofloxacin Allergy Unknown THROAT Verified 11/27/24 15:55 SWELLING dexamethasone Allergy Unknown THROAT Verified 11/27/24 15:55 SWELLING Review of Systems Review of Systems: Pertinent positives per HPI. Patient denies any fever, chills, rash, headache, visual changes, dizziness, cough, shortness of breath, chest pain, palpitations, nausea, vomiting, diarrhea, constipation, abdominal pain, or any urinary issues. [facility] Past Medical History Medical History Overweight (BMI 25.0-29.9) Low platelet count Gestational hypertension Breech presentation Depression Anxiety Surgical History Surgical History Hx of section S/P cystoscopy [place] teeth removed Family History Family History Other Unknown family medical history Social History Social History Smoking status: Never smoker Tobacco type: e-cigarettes/vaping Alcohol intake: current Substance use: never Substance use type: marijuana Do You Feel Safe in your Home?: Yes Lack of Transportation: No Lack of Food: Never True Current Housing: I Have Housing Concerned About Future Housing: No Difficulty Paying Gas/Electric Bills: No Difficulty Paying for Meds: No Currently Unemployed: No Education: Bachelor's Degree Difficulty w/ Childcare or Family Care: No Spiritual care concerns: No Comments At the time of my signature, I reviewed and agree with the nursing past medical, surgical, social, and family history. There is no relevant family history pertinent to the patient complaint. Exam Narrative: General: Well-developed, well nourished, in no apparent distress Head: Normocephalic, atraumatic Eyes: Pupils equally round and reactive to light bilaterally, EOM intact, sclera and conjunctive clear, no discharge, lids normal Ears: TMs intact and congested, right ear canal clear, left ear canal mildly swollen with tenderness to palpation over the tragus and pulling of the pinna, no drainage, grossly hearing normal. Nose: Nares patent, no discharge, no inflammation, no sinus tenderness. Mouth: Oral pharynx without lesions or masses, good dentition, MMM. Neck: Supple, trachea midline, no enlargement of anterior or posterior cervical nodes, no thyroid masses or goiter palpable. Cardio: Regular rate and rhythm, s1 and s2 normal, no murmur appreciated. Resp: Clear to auscultation bilaterally, no rhonchi, rales, wheezing or rubs Course Course Emergency Course: Portions of this record may have been created with voice recognition software. Level of Care: Express Care Visit Vital Signs Vital signs: Vital Signs Temperature 36.6 C 11/27/24 15:56 Pulse Rate 102 H 11/27/24 15:56 Respiratory Rate 18 11/27/24 15:56 Blood Pressure 124/74 11/27/24 15:56 Pulse Oximetry 98 11/27/24 15:56 Oxygen Delivery Room Air 11/27/24 15:56 Temperature 36.6 C 11/27/24 15:56 Pulse Rate 102 H 11/27/24 15:56 Respiratory Rate 18 11/27/24 15:56 Blood Pressure 124/74 11/27/24 15:56 Pulse Oximetry 98 11/27/24 15:56 Oxygen Delivery Room Air 11/27/24 15:56 Vital signs reviewed Medical Decision Making MDM Narrative Medical decision making narrative: At the time of visit patient is resting comfortably on the exam table. Patient appears to be nontoxic. Complaints of bilateral ear pain x1 month. She reports she was seen a couple weeks ago and was diagnosed with fluid behind her eardrum. She reports her symptoms are worsening and wants to be re-evaluated. Feels as though her left ear is more painful than the right ear. Noticed some drainage coming from the left ear. Denies any recent swimming. No fevers, chills, body aches. Has not taken any medications to treat her symptoms. On exam patient has mild swelling of the left ear canal with tenderness to palpation over the tragus and pulling of the pinna, she has bilateral ear congestion likely due to eustachian tube dysfunction. Plan: I suspect patient has left otitis externa and bilateral eustachian tube dysfunction. Prescription for Flonase and Cortisporin ear drops was sent to the pharmacy. Supportive measures were discussed with the patient and they voiced understanding discharge instructions and agrees to treatment plan. Return precautions reviewed Differential Diagnosis Differential Diagnosis: Otitis media, otitis externa, eustachian tube dysfunction, cerumen impaction, upper respiratory infection, serous otitis Vital Signs Vital Signs: Vital Signs Temperature 36.6 C 11/27/24 15:56 Pulse Rate 102 H 11/27/24 15:56 Respiratory Rate 18 11/27/24 15:56 Blood Pressure 124/74 11/27/24 15:56 Pulse Oximetry 98 11/27/24 15:56 Oxygen Delivery Room Air 11/27/24 15:56 Temperature 36.6 C 11/27/24 15:56 Pulse Rate 102 H 11/27/24 15:56 Respiratory Rate 18 11/27/24 15:56 Blood Pressure 124/74 11/27/24 15:56 Pulse Oximetry 98 11/27/24 15:56 Oxygen Delivery Room Air 11/27/24 15:56 Discharge Plan Discharge Clinical Impression: Acute dysfunction of both eustachian tubes Otitis externa Qualifiers: Otitis externa type: diffuse Chronicity: acute Laterality: left Qualified Code(s): H60.312 - Diffuse otitis externa, left ear Patient Disposition: Home Condition: Stable Instructions: Antibiotic Form, Swimmer's Ear (ED), Earache (ED) Additional Instructions: Take any prescribed medications only as directed-Cortisporin ear drops Tylenol/motrin as per bottle directions as needed for pain Take Flonase as prescribed May use [id number] Claritin 10 mg daily as discussed May use heating pad to alleviate pain Avoid bottle propping if ear infection in . If you get recurrent ear infections it may be warranted to follow up with ENT. Follow up with your PCP in 3-5 days if symptoms persist. Patient Language: Syrian Prescriptions: New fluticasone propionate [24 Hour Allergy Relief] 50 mcg/actuation spray,suspension 1 spray intranasal DAILY 30 Days Qty: 16 0RF Rx Instructions: administer into each nostril [id number] 3.5-10,000-1 mg/mL-unit/mL-% drops,suspension 4 drp LEFT EAR Q8H 7 Days Qty: 10 0RF Follow-up/Referrals: Matt,MD Luis [Primary Care Provider, Unknown] Kade Valverde MD [Physician, Ear, Nose, Throat] - 2 Days Clinical Impression: Otitis externa Time of Disposition: 16:10 Quality NIHSS Nursing Documentation ED NIHSS nursing documentation: reviewed/agree
== END 2024-11-27 16:16 | disposition home or self-care (01) ==
PROVIDERS: Emergency Provider Nurse Practitioner Family; PCP Hospitalist
DX: H60.312 Diffuse otitis externa, left ear (principal); H69.03 Patulous Eustachian tube, bilateral
CPT/HCPCS: 99213; G0463